=== PATIENT | female | born 1960 | race Two or more races ===

== ENCOUNTER 2021-04-13 10:03 | Day surgery (SDC) | payer OTHER ==
[~2021-04-13] VITALS: Ht 172.7 cm; Wt 90.0 kg
[2021-04-13] MEDS ORDERED: SODIUM CHLORIDE 0.9% 1,000 ML IV SCH ×2 (10:30→13:30)
[2021-04-13 10:41] VITALS: BP 152/63
[2021-04-13] MEDS ORDERED: CHLO25TA PO (10:50)
[2021-04-13] MEDS ORDERED: AMLO1CAP PO (10:50)
[2021-04-13] MEDS ORDERED: ALEN70TA77 PO (10:50)
[2021-04-13] MEDS ORDERED: METO25TA91 PO (10:50)
[2021-04-13] MEDS ORDERED: EZET10TA70 PO (10:50)
[2021-04-13] MEDS ORDERED: PLEASE ENTER HEIGHT AND WEIGHT MC SCH (11:00)
[2021-04-13] MEDS ORDERED: PLEASE ENTER ALLERGIES MC SCH ×2 (11:00)
[2021-04-13 11:31] LABS: BASOPHILS % (AUTO) 2 % (0-1); EOSINOPHILS % (AUTO) 4 % (1-7); LYMPHOCYTES % (AUTO) 46 % (22-44); MEAN CORPUSCULAR HEMOGLOBIN 28.9 pg (27.0-34.8); MEAN CORPUSCULAR HGB CONC 33.5 g/dL (32.4-35.8); MEAN PLATELET VOLUME 9.5 fL (7.4-10.4); MONOCYTES % (AUTO) 11 % (2-9); NEUTROPHILS % (AUTO) 37 % (42-75); PLATELET COUNT 242 x10^3/uL (130-400); RED BLOOD COUNT 4.59 x10^6/uL (3.82-5.3); RED CELL DISTRIBUTION WIDTH 14.3 % (9.6-15.2)
[2021-04-13 11:39] LABS: ANION GAP 5 mmol/L (5-15); CALCIUM 9.2 mg/dL (8.5-10.1); CHLORIDE 107 mmol/L (98-107)
[2021-04-13 11:44] LABS: ALANINE AMINOTRANSFERASE 19 U/L (12-78); ALKALINE PHOSPHATASE 99 U/L (45-117); BILIRUBIN,TOTAL 0.6 mg/dL (0.2-1.0); CREATININE 1.31 mg/dL (0.55-1.02); TOTAL PROTEIN 8.4 g/dL (6.4-8.2)
[2021-04-13] MEDS ORDERED: LIDOCAINE-MPF 1%, 5ML ONE (11:48)
[2021-04-13] MEDS ORDERED: HEPARIN 1,000 UNITS/ML, 10ML ONE (11:48)
[2021-04-13] MEDS ORDERED: FENTANYL PF 100 MCG/2ML ONE (11:48)
[2021-04-13] MEDS ORDERED: VERAPAMIL 2.5 MG/ML, 2ML ONE (11:48)
[2021-04-13] MEDS ORDERED: MIDAZOLAM 1 MG/ML, 2ML ONE (11:49)
[2021-04-13 12:02] LABS: MD SCAN
== END 2021-04-13 14:35 | disposition home or self-care (01) ==
LOC: CACL 10:03
PROVIDERS: ATTEND Internal Medicine Cardiovascular Disease
DX: Z01.810 Encounter for preprocedural cardiovascular examination (principal); I35.1 Nonrheumatic aortic (valve) insufficiency; I77.819 Aortic ectasia, unspecified site; I10 Essential (primary) hypertension; E78.2 Mixed hyperlipidemia; Z79.899 Other long term (current) drug therapy; Z88.8 Allergy status to other drugs, medicaments and biological substances; Z82.49 Family history of ischemic heart disease and other diseases of the circulatory system
CPT/HCPCS: 36415; 80053; 85025; 93458; 93567; 99156; 99157; C1769; C1894; J1644; J2250; J3010; Q9967

== ENCOUNTER → 2021-04-19 | Outpatient (CLI) | payer OTHER ==
[~2021-04-19] MED LIST: ALEN70TA77 PO; AMLO1CAP PO; CHLO25TA PO; EZET10TA70 PO; METO25TA91 PO; OMNIPAQUE 350 MG/ML, 100ML BOTTLE ONE
== END | disposition home or self-care (01) ==
LOC: CFH 08:27
PROVIDERS: ATTEND Internal Medicine Cardiovascular Disease
DX: I35.1 Nonrheumatic aortic (valve) insufficiency (principal)
CPT/HCPCS: 71275; Q9967

== ENCOUNTER → 2021-05-07 | Outpatient (CLI) | payer OTHER ==
[~2021-05-07] MED LIST changes: -OMNIPAQUE 350 MG/ML, 100ML BOTTLE ONE
== END | disposition home or self-care (01) ==
LOC: STAR 08:33
PROVIDERS: ATTEND Thoracic Surgery (Cardiothoracic Vascular Surgery)
DX: Z20.822 Contact with and (suspected) exposure to COVID-19 (principal)
CPT/HCPCS: U0003; U0005

== ENCOUNTER 2021-05-11 04:00 | Inpatient (IN) | payer OTHER ==
[2021-05-10 13:41] LABS: MICROSCOPIC AUTO
[2021-05-10 14:33] LABS: BASOPHILS % (AUTO) 1 % (0-1); EOSINOPHILS % (AUTO) 4 % (1-7); LYMPHOCYTES % (AUTO) 47 % (22-44); MEAN CORPUSCULAR HEMOGLOBIN 29.3 pg (27.0-34.8); MEAN CORPUSCULAR HGB CONC 33.8 g/dL (32.4-35.8); MEAN PLATELET VOLUME 9.2 fL (7.4-10.4); MONOCYTES % (AUTO) 11 % (2-9); NEUTROPHILS % (AUTO) 36 % (42-75); PLATELET COUNT 242 x10^3/uL (130-400); RED BLOOD COUNT 4.49 x10^6/uL (3.82-5.3); RED CELL DISTRIBUTION WIDTH 14.5 % (9.6-15.2)
[2021-05-10 14:41] LABS: ALANINE AMINOTRANSFERASE 19 U/L (12-78); ANION GAP 8 mmol/L (5-15); CALCIUM 9.6 mg/dL (8.5-10.1); CHLORIDE 103 mmol/L (98-107)
[2021-05-10 14:43] LABS: ALKALINE PHOSPHATASE 98 U/L (45-117); BILIRUBIN,TOTAL 0.5 mg/dL (0.2-1.0); CREATININE 1.23 mg/dL (0.55-1.02); TOTAL PROTEIN 8.2 g/dL (6.4-8.2)
[2021-05-10 14:55] LABS: INTERNATIONAL NORMALIZED RATIO 0.98 (0.93-1.1); PROTHROMBIN TIME 10.5 Seconds (9.6-11.5)
[2021-05-10 14:56] LABS: PARTIAL THROMBOPLASTIN TIME < 23 Seconds (25-31)
[2021-05-11] VITALS (10 sets, daily range): BP systolic 83–166; BP diastolic 45–61
[~2021-05-11] VITALS: Ht 172.7 cm; Wt 91.8 kg
[~2021-05-11 04:00] MED LIST changes: +CALC-534 PO; +CHOL10003 PO; +MULT-257 PO
[2021-05-11] MEDS ORDERED: CHLORHEXIDINE 15 ML UDC MM SCH (04:30)
[2021-05-11] MEDS ORDERED: INSULIN LISPRO 100 UNITS/ML, PEN SQ-INSULIN SCH (04:30)
[2021-05-11] MEDS ORDERED: MUPIROCIN OINT 2%, 15GM TP SCH (06:00)
[2021-05-11] MEDS ORDERED: FENTANYL PF 250 MCG/5ML ONE ×4 (07:01→07:02)
[2021-05-11] MEDS ORDERED: MIDAZOLAM 10MG/2 ML ONE (07:01)
[2021-05-11] MEDS ORDERED: CALCIUM CHLORIDE 10%, 10ML SYR ONE ×2 (07:02→11:29)
[2021-05-11] MEDS ORDERED: PROPOFOL 10 MG/ML, 20ML ONE (07:02)
[2021-05-11] MEDS ORDERED: ROCURONIUM 10MG/ML,5ML ONE (07:02)
[2021-05-11] MEDS ORDERED: AMINOCAPROIC ACID 250 MG/ML, 20ML ONE (07:02)
[2021-05-11] MEDS ORDERED: VANCOMYCIN 1,300 MG in SODIUM CHLORIDE 0.9% 250 ML IV PRN (07:30)
[2021-05-11] MEDS ORDERED: REGULAR INSULIN 100 UNITS in SODIUM CHLORIDE 0.9% 99 ML IV PRN ×2 (07:30)
[2021-05-11] MEDS ORDERED: SODIUM BICARB 8.4%, 50ML SYRINGE IV PRN (07:30)
[2021-05-11] MEDS ORDERED: MIDAZOLAM 1 MG/ML, 2ML IV PRN (07:30)
[2021-05-11] MEDS ORDERED: SODIUM CHLORIDE 0.9% 1,000 ML IV SCH (07:30)
[2021-05-11] MEDS: KSCALE TO 4.5 IV SCH ×2 (07:30→18:17)
[2021-05-11] MEDS ORDERED: EPINEPHRINE 5 MG in SODIUM CHLORIDE 0.9% 245 ML IV PRN ×2 (07:30)
[2021-05-11] MEDS ORDERED: PROCHLORPERAZINE 5 MG/ML, 2ML IVPush PRN (07:30)
[2021-05-11] MEDS ORDERED: GLUCAGON 1 MG IM PRN (07:30)
[2021-05-11] MEDS: OMEPRAZOLE 20 MG CAPSULE.DR PO SCH (07:30)
[2021-05-11] MEDS: ACETAMINOPHEN 500 MG TABLET PO SCH ×3 (07:30→21:11)
[2021-05-11] MEDS ORDERED: morphine SULFATE 10 MG/ML, 1ML IVPush PRN (07:30)
[2021-05-11] MEDS ORDERED: DEXTROSE 4 GM TAB.CHEW PO PRN (07:30)
[2021-05-11] MEDS ORDERED: ALBUMIN HUMAN 5% 500 ML IV PRN (07:30)
[2021-05-11] MEDS ORDERED: CALCIUM CHLORIDE 13.6 MEQ in SODIUM CHLORIDE 0.9% 100 ML IVPB PRN (07:30)
[2021-05-11] MEDS ORDERED: FENTANYL PF 100 MCG/2ML IV PRN (07:30)
[2021-05-11] MEDS ORDERED: POTASSIUM CHLORIDE 80 MEQ, SODIUM BICARBONATE 8.4% 10 MEQ, MAGNESIUM SULFATE 0.5 GM, LI... IV PRN (07:30)
[2021-05-11] MEDS ORDERED: PHENYLEPHRINE 50 MG in SODIUM CHLORIDE 0.9% 245 ML IV PRN ×2 (07:30)
[2021-05-11] MEDS ORDERED: MANNITOL PMX 20% 500 ML IVPB PRN (07:30)
[2021-05-11] MEDS ORDERED: PROMETHAZINE 25 MG SUPP PR PRN (07:30)
[2021-05-11] MEDS ORDERED: CEFUROXIME 1.5 GM in SODIUM CHLORIDE 0.9% 50 ML IVPB PRN (07:30)
[2021-05-11] MEDS ORDERED: NITROGLYCERIN/D5W PMX 250 ML IV PRN (07:30)
[2021-05-11] MEDS ORDERED: DEXMEDETOMIDINE 200 MCG in SODIUM CHLORIDE 0.9% 48 ML IV PRN (07:30)
[2021-05-11] MEDS ORDERED: VASOPRESSIN 20 UNIT in SODIUM CHLORIDE 0.9% 99 ML IV PRN (07:30)
[2021-05-11] MEDS ORDERED: INSULIN REGULAR 100 UNITS/ML, 3ML VIAL IVPush PRN (07:30)
[2021-05-11] MEDS ORDERED: DEXMEDETOMIDINE 400 MCG in SODIUM CHLORIDE 0.9% 96 ML IV PRN (07:30)
[2021-05-11] MEDS ORDERED: DOBUTAMINE 250 MG in SODIUM CHLORIDE 0.9% 230 ML IV PRN (07:30)
[2021-05-11] MEDS ORDERED: OXYcodone IR 5MG TABLET PO PRN ×2 (07:30)
[2021-05-11] MEDS ORDERED: LACTATED RINGERS 500 ML IV PRN (07:30)
[2021-05-11] MEDS: INSULIN LISPRO 100 UNITS/ML, PEN SQ-INSULIN SCH ×4 (07:30→20:19)
[2021-05-11] MEDS ORDERED: DEXTROSE 50%, 50ML SYRINGE IVPush PRN (07:30)
[2021-05-11] MEDS ORDERED: VASOPRESSIN 20 UNIT/ML, 1ML ONE (08:04)
[2021-05-11] MEDS ORDERED: PROTAMINE SULFATE 10 MG/ML, 25ML ONE (08:42)
[2021-05-11] MEDS: SENNA/DOCUSATE TABLET PO SCH ×2 (09:00→21:11)
[2021-05-11] MEDS: DOCUSATE 100 MG CAPSULE PO SCH ×2 (09:00→21:11)
[2021-05-11] MEDS ORDERED: SODIUM CHLORIDE FLUSH 10ML SYR IVF SCH (09:00)
[2021-05-11] MEDS: SODIUM CHLORIDE FLUSH 10ML SYR IVF SCH ×2 (09:00→20:21)
[2021-05-11] MEDS: POLYETHYLENE GLYCOL 17 GM PACKET PO SCH (09:00)
[2021-05-11] MEDS ORDERED: AMIODARONE 50 MG/ML, 3ML ONE (10:10)
[2021-05-11] MEDS ORDERED: HEPARIN 1,000 UNITS/ML, 30ML ONE (11:29)
[2021-05-11] MEDS ORDERED: POTASSIUM CHLORIDE 40MEQ/20ML IV ONE (11:29)
[2021-05-11] MEDS ORDERED: SODIUM BICARBONATE 1 MEQ/ML, 50ML VIAL ONE (11:29)
[2021-05-11] MEDS ORDERED: MAGNESIUM SULFATE PMX 2GM/50ML 50 ML ONE (11:30)
[2021-05-11] MEDS ORDERED: LIDOCAINE 2%, 20ML ONE (11:30)
[2021-05-11] MEDS ORDERED: ALBUMIN HUMAN 25% 50 ML ONE (11:30)
[2021-05-11 11:52] LABS: INTERNATIONAL NORMALIZED RATIO 1.37 (0.93-1.1); PROTHROMBIN TIME 14.6 Seconds (9.6-11.5)
[2021-05-11 12:33] LABS: GLUCOSE BY BLOOD GAS ANALYZER 158 mg/dL (70-110); HEMOGLOBIN BY BLOOD GAS ANALYZ 9.7 g/dL (14.0-18.0); POTASSIUM BY BLOOD GAS ANALYZR 3.2 mmol/L (3.6-5.5)
[2021-05-11] MEDS: MAGNESIUM SULFATE 1 GM in SODIUM CHLORIDE 0.9% 100 ML IVPB SCH (12:51)
[2021-05-11] MEDS ORDERED: POTASSIUM CHLORIDE 30 MEQ in SODIUM CHLORIDE 0.9% 100 ML IV ONE (13:00)
[2021-05-11] MEDS: ONDANSETRON 2MG/ML, 2ML IVPush PRN ×2 (15:02→20:10)
[2021-05-11] MEDS: CEFUROXIME 1.5 GM in SODIUM CHLORIDE 0.9% 50 ML IVPB SCH (20:13)
[2021-05-11] MEDS ORDERED: DIPHENHYDRAMINE 25 MG CAPSULE PO PRN (21:00)
[2021-05-11] MEDS: VANCOMYCIN 1,300 MG in SODIUM CHLORIDE 0.9% 250 ML IVPB SCH (21:10)
[2021-05-11] MEDS: OXYcodone IR 5MG TABLET PO PRN ×2 (21:11→22:11)
[2021-05-12] MEDS: KSCALE TO 4.5 IV SCH ×2 (00:04→05:33)
[2021-05-12] MEDS: INSULIN LISPRO 100 UNITS/ML, PEN SQ-INSULIN SCH ×6 (00:04→21:23)
[2021-05-12] MEDS: ACETAMINOPHEN 500 MG TABLET PO SCH ×4 (03:25→19:29)
[2021-05-12 04:46] LABS: ANION GAP 6 mmol/L (5-15); CALCIUM 8.5 mg/dL (8.5-10.1); CHLORIDE 116 mmol/L (98-107); CREATININE 1.11 mg/dL (0.55-1.02)
[2021-05-12 04:51] LABS: BASOPHILS % (AUTO) 1 % (0-1); EOSINOPHILS % (AUTO) 0 % (1-7); LYMPHOCYTES % (AUTO) 9 % (22-44); MEAN CORPUSCULAR HEMOGLOBIN 30.1 pg (27.0-34.8); MEAN CORPUSCULAR HGB CONC 34.4 g/dL (32.4-35.8); MEAN PLATELET VOLUME 9.2 fL (7.4-10.4); MONOCYTES % (AUTO) 10 % (2-9); NEUTROPHILS % (AUTO) 81 % (42-75); PLATELET COUNT 120 x10^3/uL (130-400); RED BLOOD COUNT 3.27 x10^6/uL (3.82-5.3); RED CELL DISTRIBUTION WIDTH 14.9 % (9.6-15.2)
[2021-05-12] MEDS: MUPIROCIN OINT 2%, 15GM NAS SCH ×2 (05:15→18:00)
[2021-05-12] MEDS ORDERED: POTASSIUM CHLORIDE PMX 100 ML IV ONE (05:30)
[2021-05-12] MEDS ORDERED: MAGNESIUM SULFATE PMX 2GM/50ML 0 ML ONE (07:55)
[2021-05-12] MEDS ORDERED: MAGNESIUM SULFATE/D5W 0 ML ONE (07:58)
[2021-05-12] MEDS: OMEPRAZOLE 20 MG CAPSULE.DR PO SCH (08:12)
[2021-05-12] MEDS: OXYcodone IR 5MG TABLET PO PRN (08:12)
[2021-05-12] MEDS: CEFUROXIME 1.5 GM in SODIUM CHLORIDE 0.9% 50 ML IVPB SCH (08:20)
[2021-05-12] MEDS: MAGNESIUM SULFATE 1 GM in SODIUM CHLORIDE 0.9% 100 ML IVPB SCH (08:51)
[2021-05-12] MEDS: SODIUM CHLORIDE FLUSH 10ML SYR IVF SCH ×2 (09:00→21:13)
[2021-05-12] MEDS: POLYETHYLENE GLYCOL 17 GM PACKET PO SCH (09:00)
[2021-05-12] MEDS: CHLORHEXIDINE 15 ML UDC MM SCH ×2 (09:25→21:11)
[2021-05-12] MEDS: ASPIRIN 81 MG TABLET EC PO SCH (09:25)
[2021-05-12] MEDS: SENNA/DOCUSATE TABLET PO SCH ×2 (09:25→21:11)
[2021-05-12] MEDS: DOCUSATE 100 MG CAPSULE PO SCH ×2 (09:25→21:11)
[2021-05-12] MEDS: VANCOMYCIN 1,300 MG in SODIUM CHLORIDE 0.9% 250 ML IVPB SCH (09:25)
[2021-05-12] MEDS ORDERED: POTASSIUM CHLORIDE 20 MEQ TAB.ER.PRT PO ONE (09:30)
[2021-05-12] MEDS ORDERED: POTASSIUM CHLORIDE 20 MEQ TAB.ER.PRT ONE (10:00)
[2021-05-12] MEDS ORDERED: KETOROLAC 30 MG/1 ML ONE (10:00)
[2021-05-12] MEDS ORDERED: FUROSEMIDE 40 MG/4 ML ONE (10:00)
[2021-05-12] MEDS ORDERED: EZETIMIBE 10 MG TABLET ONE (10:00)
[2021-05-12] MEDS: FUROSEMIDE 40 MG/4 ML IV SCH (10:02)
[2021-05-12] MEDS: KETOROLAC 30 MG/1 ML IM SCH ×2 (10:02→15:59)
[2021-05-12] MEDS: EZETIMIBE 10 MG TABLET PO SCH (10:03)
[2021-05-12] MEDS: CHLORTHALIDONE 25 MG TABLET PO SCH (10:53)
[2021-05-12 12:54] VITALS: BP 130/87
[2021-05-12 15:31] VITALS: BP 142/85
[2021-05-12 19:03] VITALS: BP 153/79
[2021-05-12] MEDS: KETOROLAC 30 MG/1 ML IV SCH (21:12)
[2021-05-13 01:27] VITALS: BP 121/76
[2021-05-13] MEDS: KETOROLAC 30 MG/1 ML IV SCH ×4 (03:29→22:42)
[2021-05-13] MEDS: ACETAMINOPHEN 500 MG TABLET PO SCH ×4 (03:29→22:42)
[2021-05-13] MEDS: OXYcodone IR 5MG TABLET PO PRN ×2 (03:59→20:54)
[2021-05-13 04:04] LABS: BASOPHILS % (AUTO) 1 % (0-1); EOSINOPHILS % (AUTO) 2 % (1-7); LYMPHOCYTES % (AUTO) 9 % (22-44); MEAN CORPUSCULAR HEMOGLOBIN 29.8 pg (27.0-34.8); MEAN CORPUSCULAR HGB CONC 33.9 g/dL (32.4-35.8); MONOCYTES % (AUTO) 8 % (2-9); NEUTROPHILS % (AUTO) 80 % (42-75); PLATELET COUNT 114 x10^3/uL (130-400); RED BLOOD COUNT 3.38 x10^6/uL (3.82-5.3)
[2021-05-13 04:14] LABS: ANION GAP 4 mmol/L (5-15); CALCIUM 8.5 mg/dL (8.5-10.1); CHLORIDE 109 mmol/L (98-107); CREATININE 1.12 mg/dL (0.55-1.02)
[2021-05-13] MEDS: MUPIROCIN OINT 2%, 15GM NAS SCH ×2 (06:00→18:00)
[2021-05-13 06:52] VITALS: BP 110/69
[2021-05-13] MEDS: INSULIN LISPRO 100 UNITS/ML, PEN SQ-INSULIN SCH ×4 (07:00→21:00)
[2021-05-13] MEDS ORDERED: BISACODYL 10 MG SUPP PR PRN (07:30)
[2021-05-13] MEDS: OMEPRAZOLE 20 MG CAPSULE.DR PO SCH (08:14)
[2021-05-13] MEDS: EZETIMIBE 10 MG TABLET PO SCH (08:15)
[2021-05-13] MEDS: CHLORTHALIDONE 25 MG TABLET PO SCH (08:15)
[2021-05-13] MEDS: DOCUSATE 100 MG CAPSULE PO SCH ×2 (08:15→21:00)
[2021-05-13] MEDS: ASPIRIN 81 MG TABLET EC PO SCH (08:16)
[2021-05-13] MEDS: FUROSEMIDE 40 MG/4 ML IV SCH (08:16)
[2021-05-13] MEDS: CHLORHEXIDINE 15 ML UDC MM SCH ×2 (08:16→22:42)
[2021-05-13] MEDS: POLYETHYLENE GLYCOL 17 GM PACKET PO SCH (08:17)
[2021-05-13] MEDS: SENNA/DOCUSATE TABLET PO SCH ×2 (08:17→21:00)
[2021-05-13] MEDS: MAGNESIUM SULFATE 1 GM in SODIUM CHLORIDE 0.9% 100 ML IVPB SCH (08:35)
[2021-05-13] MEDS: SODIUM CHLORIDE FLUSH 10ML SYR IVF SCH ×2 (08:52→21:00)
[2021-05-13] MEDS: ONDANSETRON 2MG/ML, 2ML IVPush PRN ×2 (09:06→18:46)
[2021-05-13 12:48] VITALS: BP 122/73
[2021-05-13] MEDS ORDERED: POTASSIUM CHLORIDE 20 MEQ TAB.ER.PRT ONE (13:43)
[2021-05-13] MEDS ORDERED: POTASSIUM CHLORIDE 20 MEQ TAB.ER.PRT PO ONE (14:00)
[2021-05-13 22:51] VITALS: BP 109/67
[2021-05-14] MEDS: KETOROLAC 30 MG/1 ML IV SCH ×4 (03:16→20:35)
[2021-05-14] MEDS: ACETAMINOPHEN 500 MG TABLET PO SCH ×4 (03:16→20:38)
[2021-05-14 03:20] VITALS: BP 107/64
[2021-05-14 04:03] LABS: ANION GAP 5 mmol/L (5-15); CALCIUM 8.5 mg/dL (8.5-10.1); CHLORIDE 109 mmol/L (98-107); CREATININE 1.43 mg/dL (0.55-1.02)
[2021-05-14 04:33] LABS: BASOPHILS % (AUTO) 1 % (0-1); EOSINOPHILS % (AUTO) 4 % (1-7); LYMPHOCYTES % (AUTO) 15 % (22-44); MEAN CORPUSCULAR HEMOGLOBIN 29.9 pg (27.0-34.8); MEAN CORPUSCULAR HGB CONC 34.4 g/dL (32.4-35.8); MEAN PLATELET VOLUME 9.4 fL (7.4-10.4); MONOCYTES % (AUTO) 10 % (2-9); NEUTROPHILS % (AUTO) 69 % (42-75); PLATELET COUNT 122 x10^3/uL (130-400); RED BLOOD COUNT 3.11 x10^6/uL (3.82-5.3)
[2021-05-14] MEDS: MUPIROCIN OINT 2%, 15GM NAS SCH ×2 (06:00→17:16)
[2021-05-14] MEDS: OMEPRAZOLE 20 MG CAPSULE.DR PO SCH (06:30)
[2021-05-14 06:52] VITALS: BP 122/71
[2021-05-14] MEDS: INSULIN LISPRO 100 UNITS/ML, PEN SQ-INSULIN SCH ×2 (07:04→11:26)
[2021-05-14] MEDS: DOCUSATE 100 MG CAPSULE PO SCH ×2 (08:23→20:35)
[2021-05-14] MEDS: SODIUM CHLORIDE FLUSH 10ML SYR IVF SCH ×2 (08:23→20:38)
[2021-05-14] MEDS: POLYETHYLENE GLYCOL 17 GM PACKET PO SCH (08:24)
[2021-05-14] MEDS: SENNA/DOCUSATE TABLET PO SCH ×2 (08:24→20:35)
[2021-05-14] MEDS: ASPIRIN 81 MG TABLET EC PO SCH (08:30)
[2021-05-14] MEDS: EZETIMIBE 10 MG TABLET PO SCH (08:30)
[2021-05-14] MEDS: FUROSEMIDE 40 MG/4 ML IV SCH (10:26)
[2021-05-14] MEDS: CHLORTHALIDONE 25 MG TABLET PO SCH (10:26)
[2021-05-14 12:32] VITALS: BP 122/73
[2021-05-14] MEDS: OXYcodone IR 5MG TABLET PO PRN (18:48)
[2021-05-14 19:13] VITALS: BP 128/77
[2021-05-15 02:29] VITALS: BP 119/67
[2021-05-15] MEDS: KETOROLAC 30 MG/1 ML IV SCH ×2 (02:31→07:59)
[2021-05-15] MEDS: ACETAMINOPHEN 500 MG TABLET PO SCH ×4 (02:31→21:21)
[2021-05-15] MEDS: MUPIROCIN OINT 2%, 15GM NAS SCH ×2 (05:25→15:57)
[2021-05-15 05:29] LABS: BASOPHILS % (AUTO) 1 % (0-1); EOSINOPHILS % (AUTO) 5 % (1-7); LYMPHOCYTES % (AUTO) 15 % (22-44); MEAN CORPUSCULAR HEMOGLOBIN 29.9 pg (27.0-34.8); MEAN CORPUSCULAR HGB CONC 34.3 g/dL (32.4-35.8); MONOCYTES % (AUTO) 11 % (2-9); NEUTROPHILS % (AUTO) 67 % (42-75); PLATELET COUNT 175 x10^3/uL (130-400); RED BLOOD COUNT 3.35 x10^6/uL (3.82-5.3); RED CELL DISTRIBUTION WIDTH 14.8 % (9.6-15.2)
[2021-05-15 05:44] LABS: CHLORIDE 105 mmol/L (98-107)
[2021-05-15 05:58] LABS: ANION GAP 6 mmol/L (5-15); CREATININE 1.15 mg/dL (0.55-1.02)
[2021-05-15] MEDS: SODIUM CHLORIDE FLUSH 10ML SYR IVF SCH ×2 (07:58→21:22)
[2021-05-15] MEDS: CHLORTHALIDONE 25 MG TABLET PO SCH (07:58)
[2021-05-15] MEDS: DOCUSATE 100 MG CAPSULE PO SCH ×2 (07:58→21:22)
[2021-05-15] MEDS: OMEPRAZOLE 20 MG CAPSULE.DR PO SCH (07:59)
[2021-05-15] MEDS: ASPIRIN 81 MG TABLET EC PO SCH (07:59)
[2021-05-15] MEDS: POLYETHYLENE GLYCOL 17 GM PACKET PO SCH (07:59)
[2021-05-15] MEDS: SENNA/DOCUSATE TABLET PO SCH ×2 (07:59→21:22)
[2021-05-15] MEDS: EZETIMIBE 10 MG TABLET PO SCH (07:59)
[2021-05-15 08:11] VITALS: BP 129/77
[2021-05-15] MEDS: FUROSEMIDE 40 MG/4 ML IV SCH (09:34)
[2021-05-15] MEDS ORDERED: LIDOCAINE 1%, 10ML ONE (13:28)
[2021-05-15 15:18] VITALS: BP 120/76
[2021-05-15] MEDS: OXYcodone IR 5MG TABLET PO PRN (17:36)
[2021-05-15 18:36] VITALS: BP 119/71
[2021-05-16 00:35] VITALS: BP 121/75
[2021-05-16] MEDS: ACETAMINOPHEN 500 MG TABLET PO SCH (01:53)
[2021-05-16 04:58] LABS: BASOPHILS % (AUTO) 1 % (0-1); EOSINOPHILS % (AUTO) 5 % (1-7); LYMPHOCYTES % (AUTO) 19 % (22-44); MEAN CORPUSCULAR HEMOGLOBIN 29.4 pg (27.0-34.8); MEAN CORPUSCULAR HGB CONC 33.8 g/dL (32.4-35.8); MEAN PLATELET VOLUME 8.4 fL (7.4-10.4); MONOCYTES % (AUTO) 12 % (2-9); NEUTROPHILS % (AUTO) 63 % (42-75); PLATELET COUNT 225 x10^3/uL (130-400); RED BLOOD COUNT 3.52 x10^6/uL (3.82-5.3); RED CELL DISTRIBUTION WIDTH 14.6 % (9.6-15.2)
[2021-05-16 05:08] LABS: ANION GAP 9 mmol/L (5-15); CALCIUM 8.6 mg/dL (8.5-10.1); CHLORIDE 104 mmol/L (98-107)
[2021-05-16] MEDS: MUPIROCIN OINT 2%, 15GM NAS SCH (05:40)
[2021-05-16 06:29] VITALS: BP 131/83
[2021-05-16 08:19] VITALS: BP 124/74
[2021-05-16] MEDS: OMEPRAZOLE 20 MG CAPSULE.DR PO SCH (08:22)
[2021-05-16] MEDS: CHLORTHALIDONE 25 MG TABLET PO SCH (08:22)
[2021-05-16] MEDS: SENNA/DOCUSATE TABLET PO SCH (08:22)
[2021-05-16] MEDS: DOCUSATE 100 MG CAPSULE PO SCH (08:22)
[2021-05-16] MEDS: SODIUM CHLORIDE FLUSH 10ML SYR IVF SCH (08:23)
[2021-05-16] MEDS: POLYETHYLENE GLYCOL 17 GM PACKET PO SCH (08:23)
[2021-05-16] MEDS: FUROSEMIDE 40 MG/4 ML IV SCH (08:23)
[2021-05-16] MEDS: EZETIMIBE 10 MG TABLET PO SCH (08:23)
[2021-05-16] MEDS: ASPIRIN 81 MG TABLET EC PO SCH (08:23)
[2021-05-16] MEDS ORDERED: POTASSIUM CHLORIDE 20 MEQ TAB.ER.PRT PO ONE (09:00)
[2021-05-16] MEDS ORDERED: ASPI81TA45 PO (09:01)
[2021-05-16] MEDS ORDERED: OXYC5TAB98 PO (09:01)
[2021-05-16] MEDS ORDERED: FURO-92 PO (09:01)
[2021-05-16] MEDS ORDERED: POTA20TA6 PO (09:01)
[2021-05-16] MEDS ORDERED: ONDA4TAB7 PO (09:01)
[2021-05-16 14:40] VITALS: BP 116/72
[2021-05-16] MEDS: OXYcodone IR 5MG TABLET PO PRN (16:08)
== END 2021-05-16 16:58 | disposition home health service (06) | DRG 220 ==
LOC: 5SO 04:00 → CCU 07:09 → 5SO 05-12 15:25 → DCLOUNGE 05-16 16:28
PROVIDERS: ADMIT Thoracic Surgery (Cardiothoracic Vascular Surgery); ATTEND Thoracic Surgery (Cardiothoracic Vascular Surgery)
PROC: 5A1221Z Performance of Cardiac Output, Continuous (ICD-10-PCS; 2021-05-11)
PROC: B24BZZ4 Ultrasonography of Heart with Aorta, Transesophageal (ICD-10-PCS; 2021-05-11)
PROC: 30233K1 Transfusion of Nonautologous Frozen Plasma into Peripheral Vein, Percutaneous Approach (ICD-10-PCS; 2021-05-11)
PROC: 30233N1 Transfusion of Nonautologous Red Blood Cells into Peripheral Vein, Percutaneous Approach (ICD-10-PCS; 2021-05-11)
PROC: 30233R1 Transfusion of Nonautologous Platelets into Peripheral Vein, Percutaneous Approach (ICD-10-PCS; 2021-05-11)
PROC: 30233M1 Transfusion of Nonautologous Plasma Cryoprecipitate into Peripheral Vein, Percutaneous Approach (ICD-10-PCS; 2021-05-11)
PROC: 02RF08Z Replacement of Aortic Valve with Zooplastic Tissue, Open Approach (ICD-10-PCS; principal; 2021-05-11 07:30)
PROC: 0W993ZZ Drainage of Right Pleural Cavity, Percutaneous Approach (ICD-10-PCS; 2021-05-15)
DX: I35.1 Nonrheumatic aortic (valve) insufficiency (principal); Q25.43 Congenital aneurysm of aorta; E78.5 Hyperlipidemia, unspecified; I11.0 Hypertensive heart disease with heart failure; I44.0 Atrioventricular block, first degree; I50.9 Heart failure, unspecified; I71.2 Thoracic aortic aneurysm, without rupture; Z79.899 Other long term (current) drug therapy; Z88.8 Allergy status to other drugs, medicaments and biological substances
CPT/HCPCS: 32555; 36415; 36600; J3490; S0017; 71045; 71046; 80048; 80053; 81001; 82330; 82800; 82803; 82810; 82947; 82962; 83036; 83735; 84132; 84295; 85014; 85018; 85025; 85049; 85347; 85610; 85730; 86850; 86900; 86923; 87081; 88304; 88305; 93005; 93312; 93321; 93325; 93880; 94002; 94150; C1768; G0378; J0171; J0697; J1644; J1815; J1885; J1940; J2250; J2405; J2704; J2720; J3010; J3370; J3475; J3480; J7120; P9045; P9047; C1751; C1760; J0282; J2270; J2370; J7050; P9012; P9016; P9017; P9035